=== PATIENT | female | born 1995 | race Caucasian/White ===

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

== ENCOUNTER 2022-05-08 08:33 | Emergency (ER) | payer BC, MEDICAID ==
[2022-05-08] MEDS ORDERED: TYLENOL EXTRA STRENGTH 500 MG PO ONE (08:45)
[2022-05-08 08:48] VITALS: BP 98/41; PULSE 68; O2SAT 100
--- NOTE | 2022-05-08 08:57 | ERPHSYRPT ---
- History of Present Illness Source: patient Exam Limitations: no limitations Patient Subjective Stated Complaint: PT HERE FOR RIGHT SHOULDER PAIN TODAY AFTER STRETCHING ARM BACK Triage Nursing Assessment: PT ALERT, RESP EASY, SKIN W/D/P, HAS DEFORMITY OF RIGHT SHOULDER Physician History: 26 yo WF who is 17 wks presents w probable R shoulder dislocations which occurred after reaching over her head this AM. Pt is L handed and states t hat she has a h/o "shoulder problems" but denies h/o dislocation. She denies other injuries at this time. Occurred: just prior to arrival Method of Injury: other (Lifting over her head) Quality: constant Severity of Pain-Max: moderate Severity of Pain-Current: mild Extremities Pain Location: shoulder: right Modifying Factors: Improves With: movement Associated Symptoms: none Allergies/Adverse Reactions: amoxicillin Allergy (Verified 05/08/22 08:42) Home Medications: No Reportable Medications [No Reported Medications] 05/14/16 [History] Hx Tetanus, Diphtheria Vaccination/Date Given: Yes Hx Influenza Vaccination/Date Given: No Hx Pneumococcal Vaccination/Date Given: No Immunizations Up to Date: Yes Travel Risk - International Travel Have you traveled outside of the country in past 3 weeks: No - Coronavirus Screening Are you exhibiting any of the following symptoms?: No - Vaccine Status Have you recieved a Covid-19 vaccination: No - Review of Systems Constitutional: No Symptoms Eyes: No Symptoms Ears, Nose, & Throat: No Symptoms Respiratory: No Symptoms Cardiac: No Symptoms Abdominal/Gastrointestinal: No Symptoms Genitourinary Symptoms: No Symptoms Skin: No Symptoms Neurological: No Symptoms Psychological: No Symptoms Endocrine: No Symptoms Hematologic/Lymphatic: No Symptoms Immunological/Allergic: No Symptoms - Past Medical History Pertinent Past Medical History: No - Past Surgical History Past Surgical History: Yes Gastrointestinal: Cholecystectomy - Social History Smoking Status: Former smoker Exposure to second hand smoke: Yes Drug Use: none Patient Lives Alone: No - Female History Hx Last Menstrual Period: NOV Hx Now: Yes Gestational Age: 18 - Nursing Vital Signs Nursing Vital Signs: Initial Vital Signs Temperature 98.7 F 05/08/22 08:47 Pulse Rate 68 05/08/22 08:47 Respiratory Rate 18 05/08/22 08:47 Blood Pressure 98/41 05/08/22 08:47 O2 Sat by Pulse Oximetry 100 05/08/22 08:47 Pain Scale Pain Intensity 4 WNL - Physical Exam General Appearance: no apparent distress Eyes, Ears, Nose, Throat Exam: normal ENT inspection, TMs normal, pharynx normal, moist mucous membranes Neck Exam: normal inspection, non-tender, supple, full range of motion, No Brudzinski, No Kernig's, No meningismus Cardiovascular/Respiratory Exam: normal breath sounds, regular rate/rhythm, heart sounds normal Abdominal Exam: non-tender, soft Back Exam: normal inspection, normal range of motion, No vertebral tenderness Shoulder Exam: deformity (Obvious dislocation of R shoulder/Good radial pulse, distal sensation, and capillary return) Elbow/Forearm Exam: normal inspection Wrist Exam: normal inspection Hand Exam: normal inspection Neuro/Tendon Exam: normal sensation, normal motor functions, normal tendon functions, responds to pain Mental Status Exam: alert, oriented x 3, cooperative Skin Exam: normal color, warm, dry SpO2 Interpretation: normal SpO2: 100 O2 Delivery: Room Air - Course Nursing assessment & vital signs reviewed: Yes Ordered Tests: Active Orders 24 hr Category Date Time Status Sling Application STAT Care 05/08/22 09:02 Completed Medication Summary Discontinued Medications Generic Name Dose Route Start Last Admin Trade Name Ebonie PRN Reason Stop Dose Admin Acetaminophen 1,000 mg 05/08/22 08:45 05/08/22 09:04 Acetaminophen 500 Mg Tablet PO 05/08/22 08:46 1,000 mg STAT ONE Administration Acetaminophen Confirm 05/08/22 09:03 Acetaminophen 500 Mg Tablet Administered 05/08/22 09:04 Dose 1,000 mg .ROUTE .STK-MED ONE - Progress Progress: improved Progress Note: 05/08/22 08:57 No food or housing insecurities noted Pt is a full code R shoulder dislocation reduced easily wo sedation by abducting the RUE w humoral head pressure per nursing Obvious reduction/No comps Pt refused post reduction XR's due to Good distal capillary return and sensation post reduction Sling applied/NVI 1gm po Tylenol 05/08/22 09:01 05/08/22 11:56 Counseled pt/family regarding: diagnosis, need for follow-up - Departure Departure Disposition: Home Clinical Impression: Dislocation of right shoulder joint Condition: Stable Critical Care Time: No Referrals: [facility] [NON-STAFF PHY W/O PRIVILEGES] - Follow up/PCP as directed Instructions: Shoulder Dislocation (DC) Additional Instructions: Tylenol for pain Follow up in ortho-clinic
[2022-05-08] MEDS ORDERED: TYLENOL EXTRA STRENGTH 500 MG ONE (09:03)
== END 2022-05-08 09:19 | disposition home or self-care (01) ==
LOC: ED 08:33
DX: S43.004A Unspecified dislocation of right shoulder joint, initial encounter (principal); X50.0XXA Overexertion from strenuous movement or load, initial encounter; Z33.1 Pregnant state, incidental; Z28.310 Unvaccinated for COVID-19
CPT/HCPCS: 23650; 99282; L3650; A9270-GY

== ENCOUNTER 2022-08-17 17:50 | Observation (INO) | payer BC, OTHER ==
[2022-08-17 19:14] VITALS: BP 106/50; PULSE 86; O2SAT 96
== END 2022-08-17 18:58 | disposition home or self-care (01) ==
LOC: OB 17:50
PROVIDERS: ADMIT Obstetrics & Gynecology; ATTEND Obstetrics & Gynecology
DX: Z34.83 Encounter for supervision of other normal pregnancy, third trimester (principal); Z3A.31 31 weeks gestation of pregnancy
CPT/HCPCS: G0378; G0379

== ENCOUNTER 2022-08-31 15:13 | Emergency (ER) | payer BC, OTHER ==
--- NOTE | 2022-08-31 15:26 | ERPHSYRPT ---
- History of Present Illness Time Seen by Provider: 08/31/22 15:26 Source: patient Exam Limitations: no limitations Physician History: This is a 26-year-old white female patient of Dr. Calderon and [facility] Dr. Tabor who presents approximately 33 weeks gestation with a single intrauterine that was documented most recently on 08/04/2022 on an obstetric ultraso und. Patient is here today because she was sensing palpitations intermittently since Wednesday prior to this evaluation. She had never had this before during thi or any other . She is not having chest pain. She is not significantly short of breath. She has not had a cough. She has not had fevers. There is been no dysuria or hematuria. There is been no abnormal vaginal bleeding. Timing/Duration: yesterday Severity of Dyspnea-Max: none Severity of Dyspnea-Current: none Possible Cause: no prior episodes Modifying Factors: Improves With: nothing Associated Symptoms: denies symptoms Allergies/Adverse Reactions: amoxicillin Allergy (Unknown, Verified 08/31/22 15:20) Home Medications: Vit 93/Iron Fum/Folic [ Formula Tablet] 1 each PO DAILY 08/17/22 [History] Hx Tetanus, Diphtheria Vaccination/Date Given: Yes Hx Influenza Vaccination/Date Given: No Hx Pneumococcal Vaccination/Date Given: No Travel Risk - International Travel Have you traveled outside of the country in past 3 weeks: No - Coronavirus Screening Are you exhibiting any of the following symptoms?: No Close contact with a COVID-19 positive Pt in past 14-21 Days: No - Vaccine Status Have you recieved a Covid-19 vaccination: No - Review of Systems Constitutional: No Symptoms Eyes: No Symptoms Ears, Nose, & Throat: No Symptoms Respiratory: No Symptoms Cardiac: Palpitations, No Chest Pain Abdominal/Gastrointestinal: No Symptoms Genitourinary Symptoms: No Symptoms Musculoskeletal: No Symptoms Skin: No Symptoms Neurological: No Symptoms Psychological: No Symptoms Endocrine: No Symptoms Hematologic/Lymphatic: No Symptoms Immunological/Allergic: No Symptoms All Other Systems: Reviewed and Negative - Past Medical History Pertinent Past Medical History: No - Past Surgical History Past Surgical History: Yes Gastrointestinal: Cholecystectomy - Social History Smoking Status: Current every day smoker Exposure to second hand smoke: Yes Drug Use: none Patient Lives Alone: No - Nursing Vital Signs Nursing Vital Signs: Initial Vital Signs Respiratory Rate 18 08/31/22 15:30 O2 Sat by Pulse Oximetry 98 08/31/22 15:30 Pain Scale Pain Intensity 0 - Physical Exam General Appearance: no apparent distress, alert, anxiety Eye Exam: PERRL/EOMI, eyes nml inspection Ears, Nose, Throat Exam: hearing grossly normal, normal ENT inspection Neck Exam: normal inspection, non-tender, supple, full range of motion Respiratory Exam: normal breath sounds, lungs clear, airway intact, No chest tenderness, No respiratory distress Cardiovascular/Chest Exam: tachycardia Abdominal/Gastrointestinal Exam: soft (Mild), normal bowel sounds, No tenderness Rectal Exam: No not done Extremity Exam: non-tender, normal range of motion, normal inspection, normal capillary refill, no calf tenderness, no pedal edema, pelvis stable Neurologic Exam: alert, oriented x 3, cooperative, 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, normal mood/affect, nml cerebellar function, nml station & gait, sensation nml Skin Exam: normal color, warm, dry Lymphatic Exam: No adenopathy SpO2 Interpretation: normal O2 Delivery: Room Air - Course Nursing assessment & vital signs reviewed: Yes EKG Interpreted by Me: RATE (104), Sinus Tach, NORMAL AXIS, NORMAL INTERVALS, NORMAL QRS, NORMAL ST-T, Other (No acute ischemic changes on today's twelve-lead EKG.) Ordered Tests: Active Orders 24 hr Category Date Time Status Passenger Rate Clerk STAT Care 08/31/22 15:42 Active EKG-ER Only STAT Care 08/31/22 15:42 Active IV Insertion STAT Care 08/31/22 15:42 Active Pulse Oximetry (ED) STAT Care 08/31/22 15:42 Active CBC W DIFF Stat Lab 08/31/22 15:42 Completed CMP Stat Lab 08/31/22 15:25 Completed CULTURE,URINE Stat Lab 08/31/22 15:43 Received MAGNESIUM Stat Lab 08/31/22 15:25 Completed TROPONIN Q4H Lab 08/31/22 15:25 Completed TROPONIN Q4H Lab 08/31/22 19:45 Ordered TROPONIN Q4H Lab 08/31/22 23:45 Ordered UA W/RFX UR CULTURE Stat Lab 08/31/22 15:43 Completed Medication Summary Generic Name Dose Route Start Last Admin Trade Name Freq PRN Reason Stop Dose Admin Sodium Chloride 1,000 mls @ 999 mls/hr 08/31/22 15:42 08/31/22 15:48 Sodium Chloride 0.9% 1000 Ml IV 08/31/22 16:42 999 mls/hr .Q1H1M STA Administration Ceftriaxone Sodium/Dextrose 1 g in 50 mls @ 100 mls/hr 08/31/22 16:10 08/31/22 16:20 Rocephin 1 Gm-D5w 50 Ml Bag IV 08/31/22 16:39 100 ml/hr STAT STA 100 mls/hr Administration Discontinued Medications Generic Name Dose Route Start Last Admin Trade Name Ebonie PRN Reason Stop Dose Admin Sodium Chloride Confirm 08/31/22 15:46 Sodium Chloride 0.9% 1000 Ml Administered 08/31/22 15:47 Dose 1,000 mls @ ud .ROUTE .STK-MED ONE Ceftriaxone Sodium/Dextrose Confirm 08/31/22 16:18 Rocephin 1 Gm-D5w 50 Ml Bag Administered 08/31/22 16:19 Dose 1 g in 50 mls @ ud IV .STK-MED ONE Lab/Rad Data: Laboratory Result Diagrams 08/31/22 15:42 08/31/22 15:25 Laboratory Results 08/31/22 08/31/22 08/31/22 Range/Units 15:43 15:42 15:25 WBC 10.4 (4.0-10.5) x10^3/uL RBC 3.96 L (4.1-5.4) x10^6/uL Hgb 11.6 L (12.0-16.0) g/dL Hct 35.6 (35-47) % MCV 89.9 (78-100) fL MCH 29.3 (26-32) pg MCHC 32.6 (32-36) g/dL RDW 12.9 (11.5-14.0) % Plt Count 250 (150-450) x10^3/uL MPV 10.2 (7.5-11.0) fL Gran % 73.7 H (36.0-66.0) % Immature Gran % (Auto) 0.9 H (0.00-0.4) % Nucleat RBC Rel Count 0.0 (0.00-0.1) % Eos # (Auto) 0.08 (0-0.5) x10^3/uL Immature Gran # (Auto) 0.09 H (0.00-0.03) x10^3u/L Absolute Lymphs (auto) 2.03 (1.0-4.6) x10^3/uL Absolute Monos (auto) 0.50 (0.0-1.3) x10^3/uL Absolute Nucleated RBC 0.00 (0.00-0.01) x10^3u/L Lymphocytes % 19.5 L (24.0-44.0) % Monocytes % 4.8 (0.0-12.0) % Eosinophils % 0.8 (0.00-5.0) % Basophils % 0.3 (0.0-0.4) % Absolute Granulocytes 7.69 H (1.4-6.9) x10^3/uL Basophils # 0.03 (0-0.4) x10^3/uL Sodium (137-145) mmol/L Potassium (3.5-5.1) mmol/L Chloride (98-107) mmol/L Carbon Dioxide (22-30) mmol/L Anion Gap (5-15) MEQ/L BUN (7-17) mg/dL Creatinine (0.52-1.04) mg/dL Estimated GFR ML/MIN Glucose (74-106) mg/dL Calcium (8.4-10.2) mg/dL Magnesium (1.6-2.3) mg/dL Total Bilirubin (0.2-1.3) mg/dL AST (14-36) U/L ALT (0-35) U/L Alkaline Phosphatase (38-126) U/L Troponin I < 0.012 (0.000-0.034) ng/mL Serum Total Protein (6.3-8.2) g/dL Albumin (3.5-5.0) g/dL Urine Color Yellow (Yellow) Urine Appearance Cloudy A (Clear) Urine pH 6.5 (4.6-8.0) Ur Specific [place] 1.020 (1.005-1.030) Urine Protein Trace A (Negative) Urine Glucose (UA) 250 A (Negative) mg/dL Urine Ketones 15 A (Negative) Urine Blood Negative (Negative) Urine Nitrite Negative (Negative) Urine Bilirubin Negative (Negative) Urine Urobilinogen 2.0 A (0.2) mg/dL Ur Leukocyte Esterase Moderate A (Negative) U Hyaline Cast (Auto) NONE SEEN (0-2) /LPF Urine Microscopic RBC 0-2 (0-5) /HPF Urine Microscopic WBC 21-50 A (0-5) /HPF Ur Epithelial Cells Many A (None Seen) /HPF Urine Bacteria Moderate A (None Seen) /HPF Urine Culture Reflexed YES (NO) 08/31/22 Range/Units 15:25 WBC (4.0-10.5) x10^3/uL RBC (4.1-5.4) x10^6/uL Hgb (12.0-16.0) g/dL Hct (35-47) % MCV (78-100) fL MCH (26-32) pg MCHC (32-36) g/dL RDW (11.5-14.0) % Plt Count (150-450) x10^3/uL MPV (7.5-11.0) fL Gran % (36.0-66.0) % Immature Gran % (Auto) (0.00-0.4) % Nucleat RBC Rel Count (0.00-0.1) % Eos # (Auto) (0-0.5) x10^3/uL Immature Gran # (Auto) (0.00-0.03) x10^3u/L Absolute Lymphs (auto) (1.0-4.6) x10^3/uL Absolute Monos (auto) (0.0-1.3) x10^3/uL Absolute Nucleated RBC (0.00-0.01) x10^3u/L Lymphocytes % (24.0-44.0) % Monocytes % (0.0-12.0) % Eosinophils % (0.00-5.0) % Basophils % (0.0-0.4) % Absolute Granulocytes (1.4-6.9) x10^3/uL Basophils # (0-0.4) x10^3/uL Sodium 136 L (137-145) mmol/L Potassium 3.6 (3.5-5.1) mmol/L Chloride 106 (98-107) mmol/L Carbon Dioxide 20 L (22-30) mmol/L Anion Gap 13.7 (5-15) MEQ/L BUN 4 L (7-17) mg/dL Creatinine 0.40 L (0.52-1.04) mg/dL Estimated GFR > 60.0 ML/MIN Glucose 113 H (74-106) mg/dL Calcium 9.2 (8.4-10.2) mg/dL Magnesium 1.7 (1.6-2.3) mg/dL Total Bilirubin 0.90 (0.2-1.3) mg/dL AST 18 (14-36) U/L ALT 12 (0-35) U/L Alkaline Phosphatase 100 (38-126) U/L Troponin I (0.000-0.034) ng/mL Serum Total Protein 6.7 (6.3-8.2) g/dL Albumin 3.6 (3.5-5.0) g/dL Urine Color (Yellow) Urine Appearance (Clear) Urine pH (4.6-8.0) Ur Specific [place] (1.005-1.030) Urine Protein (Negative) Urine Glucose (UA) (Negative) mg/dL Urine Ketones (Negative) Urine Blood (Negative) Urine Nitrite (Negative) Urine Bilirubin (Negative) Urine Urobilinogen (0.2) mg/dL Ur Leukocyte Esterase (Negative) U Hyaline Cast (Auto) (0-2) /LPF Urine Microscopic RBC (0-5) /HPF Urine Microscopic WBC (0-5) /HPF Ur Epithelial Cells (None Seen) /HPF Urine Bacteria (None Seen) /HPF Urine Culture Reflexed (NO) - Progress Progress: improved, re-examined Air Movement: good Progress Note: 08/31/22 16:28 This patient's medical issue is 1 of moderate complexity. Level of complexity in the work-up performed is based on review of the patient's past medical history, review the patient's medication list, review the patient's medical drug allergies, history present illness and physical findings on examination. The work-up includes placement of intravenous line, infusion of 1 L normal saline solution, CBC, CMP, twelve-lead EKG and troponin level. I reviewed the patient work-up results. The patient has a urinary tract infection and is mildly dehydrated. The patient has had Keflex in the past and has had no problems with Keflex. I did attempt to call the patient's OB physician. I left a message. He has not yet called me back. I am confident that the patient's palpitation is likely secondary to mild dehydration and a urinary tract infection during . Obstetrical nurses came down and monitored the intrauterine child and they stated that the child "looks good". I am discharging the patient to home with a prescription for Keflex antibiotics. Blood Culture(s) Obtained: No Antibiotics given: Yes Counseled pt/family regarding: lab results, diagnosis, need for follow-up Medical Desision Making - Independent Historian Additional History obtained from: Spouse - Diagnostic Testing Diagnostic test were ordered, analyzed, and reviewed by me: Yes - Risk of complications The pt has a mod risk of morbidity or mortality based on: Need for prescription drug management - Departure Departure Disposition: Home Clinical Impression: Dehydration, mild, Urinary tract infection during Condition: Stable Critical Care Time: No Referrals: SORAYA FALL MD [Primary Care Provider] - Follow up/PCP as directed Additional Instructions: Drink plenty of fluids. Take your medication as prescribed. Follow-up with your primary care provider and [facility] for further evaluation and management. Prescriptions: Cephalexin Mh 500 mg [Keflex 500 mg] 500 mg PO TID #21 cap
[2022-08-31] MEDS ORDERED: Sodium Chloride 0.9% 1000 ML 1,000 ML IV STA (15:42)
[2022-08-31] MEDS ORDERED: Sodium Chloride 0.9% 1000 ML 1,000 ML ONE (15:46)
[2022-08-31 15:54] LABS: Absolute Neutrophil Ct (ANC) 7.69 x10^3/uL (1.4-6.9); BASOPHIL % 0.3 % (0.0-0.4); Basophil (Absolute #) 0.03 x10^3/uL (0-0.4); Eosinophil % 0.8 % (0.00-5.0); Eosinophil (Absolute #) 0.08 x10^3/uL (0-0.5); Hematocrit 35.6 % (35-47); Hemoglobin 11.6 g/dL (12.0-16.0); IMMATURE GRAN # 0.09 x10^3u/L (0.00-0.03); IMMATURE GRAN % 0.9 % (0.00-0.4); Lymphocyte (Absolute #) 2.03 x10^3/uL (1.0-4.6); Lymphocytes % 19.5 % (24.0-44.0); Mean Cell Volume 89.9 fL (78-100); Mean Corpuscular Hemoglobin 29.3 pg (26-32); Mean Corpuscular Hgb Concent. 32.6 g/dL (32-36); Mean Platelet Volume 10.2 fL (7.5-11.0); Monocytes % 4.8 % (0.0-12.0); Neutrophil % 73.7 % (36.0-66.0); Platelet Count 250 x10^3/uL (150-450); Red Blood Count 3.96 x10^6/uL (4.1-5.4); Red Cell Distribution Width 12.9 % (11.5-14.0); White Blood Count 10.4 x10^3/uL (4.0-10.5)
[2022-08-31 16:03] LABS: Appearance Cloudy (Clear); Bacteria Moderate /HPF (None Seen); Bilirubin Negative (Negative); Blood Negative (Negative); Epithelial Cells Many /HPF (None Seen); Glucose, Urine 250 mg/dL (Negative); Hyaline Casts NONE SEEN /LPF (0-2); Ketones 15 (Negative); Leukocyte Esterase Moderate (Negative); Nitrite Negative (Negative); Ph 6.5 (4.6-8.0); Protein,Urine Dip Trace (Negative); RBC 0-2 /HPF (0-5); WBC 21-50 /HPF (0-5)
[2022-08-31 16:04] LABS: ADD URINE CULTURE? YES (NO)
[2022-08-31 16:06] LABS: ALBUMIN 3.6 g/dL (3.5-5.0); ALKALINE PHOSPHATASE 100 U/L (38-126); ANION GAP 13.7 MEQ/L (5-15); BLOOD UREA NITROGEN 4 mg/dL (7-17); CHLORIDE 106 mmol/L (98-107); Calcium 9.2 mg/dL (8.4-10.2); Carbon Dioxide 20 mmol/L (22-30); EST GLOMERULAR FILTRATION RATE > 60.0 ML/MIN; Glucose 113 mg/dL (74-106); MAGNESIUM 1.7 mg/dL (1.6-2.3); Potassium 3.6 mmol/L (3.5-5.1); SGOT/AST 18 U/L (14-36); SGPT/ALT 12 U/L (0-35); SODIUM 136 mmol/L (137-145); Total Protein 6.7 g/dL (6.3-8.2)
[2022-08-31] MEDS ORDERED: ROCEPHIN 1 Gm-D5w 50 ml Bag** 1 G/50 ML IVPB IV STA (16:10)
[2022-08-31] MEDS ORDERED: ROCEPHIN 1 Gm-D5w 50 ml Bag** 1 G/50 ML IVPB IV ONE (16:18)
[2022-08-31 16:51] VITALS: BP 107/64; PULSE 84; O2SAT 98
== END 2022-08-31 16:55 | disposition home or self-care (01) ==
LOC: ED 15:13
DX: O23.43 Unspecified infection of urinary tract in pregnancy, third trimester (principal); N39.0 Urinary tract infection, site not specified; Z3A.33 33 weeks gestation of pregnancy; E86.0 Dehydration; R00.2 Palpitations; Z28.310 Unvaccinated for COVID-19; Z72.0 Tobacco use
CPT/HCPCS: 36000; 36415; 80053; 81001; 83735; 84484; 85025; 87086; 93005; 93041; 94760; 96365; 99284; J0696

== ENCOUNTER 2022-10-11 08:05 | Inpatient (IN) | payer BC, OTHER ==
[2022-10-11] MEDS ORDERED: TYLENOL EXTRA STRENGTH 500 MG PO PRN (20:00)
[2022-10-11] MEDS ORDERED: Nubain 10 MG/ML IV PRN (20:00)
[2022-10-11] MEDS ORDERED: Zofran 4 MG/2 ML VIAL IV PRN (20:00)
[2022-10-11] MEDS ORDERED: STADOL 2 MG IV PRN (20:00)
[2022-10-11 20:53] LABS: Hematocrit 33.5 % (35-47); Hemoglobin 11.2 g/dL (12.0-16.0); Mean Cell Volume 87.7 fL (78-100); Mean Corpuscular Hemoglobin 29.3 pg (26-32); Mean Corpuscular Hgb Concent. 33.4 g/dL (32-36); Mean Platelet Volume 10.2 fL (7.5-11.0); Platelet Count 251 x10^3/uL (150-450); Red Blood Count 3.82 x10^6/uL (4.1-5.4); Red Cell Distribution Width 13.2 % (11.5-14.0)
[2022-10-11 21:43] LABS: ABO TYPING O; Antibody Screen NEGATIVE (NEGATIVE); RH TYPING POSITIVE
[2022-10-11] MEDS ORDERED: CYTOTEC PO SCH (22:45)
[2022-10-12] MEDS ORDERED: Lactated Ringers 1,000 ML IV ONE
[2022-10-12] MEDS ORDERED: FENTANYL 2 MCG-BUPIV 0.125%-NS 250 ML Epidur 250 ML EPIDURAL SCH
[2022-10-12] MEDS ORDERED: Ephedrine Sulfate 50 MG/ML IV PRN
[2022-10-12] MEDS ORDERED: PITOCIN 30 UNITS/ LR 500 ML 500 ML IV SCH (05:00)
[2022-10-12] MEDS ORDERED: Lactated Ringers 1,000 ML IV SCH (05:00)
[2022-10-12] MEDS ORDERED: XYLOCAINE 1% HCL 20 ML MDV IJ PRN (05:00)
[2022-10-12] MEDS: Lactated Ringers 1,000 ML IV SCH ×2 (08:21→11:52)
[2022-10-12] MEDS ORDERED: PITOCIN 30 UNITS/ LR 500 ML 30 UNITS/500 ML PLAST..BAG IV SCH (10:00)
[2022-10-12] MEDS ORDERED: LANSINOH 40 GM TOP PRN (12:00)
[2022-10-12] MEDS ORDERED: Dermoplast Spray TP PRN (12:00)
[2022-10-12] MEDS ORDERED: TUCKS TP PRN (12:00)
[2022-10-12] MEDS: MOTRIN 400 MG PO PRN (19:23)
[2022-10-13] MEDS: MOTRIN 400 MG PO PRN ×3 (01:16→15:40)
[2022-10-13 04:35] LABS: Absolute Neutrophil Ct (ANC) 7.92 x10^3/uL (1.4-6.9); BASOPHIL % 0.3 % (0.0-0.4); Basophil (Absolute #) 0.04 x10^3/uL (0-0.4); Eosinophil % 1.2 % (0.00-5.0); Eosinophil (Absolute #) 0.14 x10^3/uL (0-0.5); Hemoglobin 10.5 g/dL (12.0-16.0); IMMATURE GRAN # 0.07 x10^3u/L (0.00-0.03); IMMATURE GRAN % 0.6 % (0.00-0.4); Lymphocyte (Absolute #) 2.53 x10^3/uL (1.0-4.6); Lymphocytes % 21.5 % (24.0-44.0); Mean Cell Volume 88.4 fL (78-100); Mean Corpuscular Hgb Concent. 32.8 g/dL (32-36); Mean Platelet Volume 10.3 fL (7.5-11.0); Monocyte (Absolute #) 1.05 x10^3/uL (0.0-1.3); Monocytes % 8.9 % (0.0-12.0); Neutrophil % 67.5 % (36.0-66.0); Platelet Count 210 x10^3/uL (150-450); Red Blood Count 3.62 x10^6/uL (4.1-5.4); Red Cell Distribution Width 13.2 % (11.5-14.0); White Blood Count 11.8 x10^3/uL (4.0-10.5)
--- NOTE | 2022-10-13 07:42 | PCM.NOTE ---
Date and Time: 10/13/22740 Subjective Assessment: ppd 1 sp pt resting in bed and doing well able to ambulate and tolerate diet. vss afebrile abd; soft uterus; firm lochia; mild hgb; 10 a/p sp ppd 1 anticipate discharge tomorrow should fu office in 3 wks OBJECTIVE DATA Vital Signs: Vital Signs - 24 hr Temp Pulse Resp BP BP Pulse Ox 10/13/22 02:15 98.6 F 55 L 18 109/53 10/12/22 20:10 97.9 F 72 18 107/60 10/12/22 16:00 98 F 74 18 105/62 10/12/22 15:20 98 F 69 20 100/56 100 10/12/22 15:05 98 F 69 20 100/58 100 10/12/22 14:44 98 F 66 20 93/51 100 10/12/22 14:30 97.9 F 75 20 107/52 94 L 10/12/22 14:00 98 F 69 20 10/12/22 13:45 69 20 103/59 100 10/12/22 13:30 98 F 71 20 113/64 10/12/22 13:15 72 20 107/76 10/12/22 13:00 72 20 100 10/12/22 12:45 98 F 69 20 100 10/12/22 12:30 65 20 10/12/22 12:15 65 16 111/63 10/12/22 12:00 66 16 113/59 10/12/22 11:45 75 16 112/63 10/12/22 11:30 70 16 109/64 10/12/22 11:15 70 16 94/54 10/12/22 11:00 70 16 94/56 10/12/22 10:45 61 18 89/51 10/12/22 10:30 64 16 101/55 95 10/12/22 10:15 68 18 104/58 95 10/12/22 10:00 71 18 104/56 96 10/12/22 09:45 71 18 98/54 96 10/12/22 09:30 79 18 104/61 10/12/22 09:00 76 22 101/59 10/12/22 08:30 68 20 103/55 10/12/22 08:15 76 22 Pain Assessment - Last Documented Pain Intensity 0 Pain Scale Used 0-10 Pain Scale Intake and Output: Intake & Output 10/10/22 10/11/22 10/12/22 10/13/22 11:59 11:59 11:59 11:59 Intake Total 3450 2600 Output Total 2300 1200 Balance 1150 1400 Weight 63.049 kg Lab Results: Lab Results-Last 24 Hours 10/13/22 Range/Units 04:32 WBC 11.8 H (4.0-10.5) x10^3/uL RBC 3.62 L (4.1-5.4) x10^6/uL Hgb 10.5 L (12.0-16.0) g/dL Hct 32.0 L (35-47) % MCV 88.4 (78-100) fL MCH 29.0 (26-32) pg MCHC 32.8 (32-36) g/dL RDW 13.2 (11.5-14.0) % Plt Count 210 (150-450) x10^3/uL MPV 10.3 (7.5-11.0) fL Gran % 67.5 H (36.0-66.0) % Immature Gran % (Auto) 0.6 H (0.00-0.4) % Nucleat RBC Rel Count 0.0 (0.00-0.1) % Eos # (Auto) 0.14 (0-0.5) x10^3/uL Immature Gran # (Auto) 0.07 H (0.00-0.03) x10^3u/L Absolute Lymphs (auto) 2.53 (1.0-4.6) x10^3/uL Absolute Monos (auto) 1.05 (0.0-1.3) x10^3/uL Absolute Nucleated RBC 0.00 (0.00-0.01) x10^3u/L Lymphocytes % 21.5 L (24.0-44.0) % Monocytes % 8.9 (0.0-12.0) % Eosinophils % 1.2 (0.00-5.0) % Basophils % 0.3 (0.0-0.4) % Absolute Granulocytes 7.92 H (1.4-6.9) x10^3/uL Basophils # 0.04 (0-0.4) x10^3/uL Assessment/Plan (1) Vaginal delivery Current Visit: Yes Status: Acute Code(s): O80 - ENCOUNTER FOR FULL-TERM UNCOMPLICATED DELIVERY
--- NOTE | 2022-10-13 07:46 | PCM.DS ---
Discharge Summary Date of Admission: 10/12/22 08:05 Admitting Physician: SCOTT GARCIA DO Consults: Consults on Case 10/12/22 17:09 Navigation ONCE Primary Care Provider: SORAYA FALL MD Allergies Allergies amoxicillin Allergy (Mild, Verified 09/29/22 16:01) Rash Hospital Summary - Hospital Course Hospital Course: pt admitted on october 11 for oral cytotec induction at 39 wks gestation and subsequently delivered live baby girl via withoutcomplication on october 12. during period did well able to ambulate and tolerate diet with stable hgb level at 10. pt at at this time stable for discharge on october 14 and was advised to fu in office in 3 wks. all questions answered to her satisfaction. - Vitals & Intake/Output Vital Signs: Vital Signs Temperature 98.6 F 10/13/22 02:15 Pulse Rate 55 L 10/13/22 02:15 Respiratory Rate 18 10/13/22 02:15 Blood Pressure 109/53 10/13/22 02:15 O2 Sat by Pulse Oximetry 100 10/12/22 15:20 Intake & Output: Intake & Output 10/10/22 10/11/22 10/12/22 10/13/22 11:59 11:59 11:59 11:59 Intake Total 3450 2600 Output Total 2300 1200 Balance 1150 1400 Weight 63.049 kg - Lab Result Diagrams: 10/13/22 04:32 Lab Results-Last 24 Hrs: Lab Results-Last 24 Hours 10/13/22 Range/Units 04:32 WBC 11.8 H (4.0-10.5) x10^3/uL RBC 3.62 L (4.1-5.4) x10^6/uL Hgb 10.5 L (12.0-16.0) g/dL Hct 32.0 L (35-47) % MCV 88.4 (78-100) fL MCH 29.0 (26-32) pg MCHC 32.8 (32-36) g/dL RDW 13.2 (11.5-14.0) % Plt Count 210 (150-450) x10^3/uL MPV 10.3 (7.5-11.0) fL Gran % 67.5 H (36.0-66.0) % Immature Gran % (Auto) 0.6 H (0.00-0.4) % Nucleat RBC Rel Count 0.0 (0.00-0.1) % Eos # (Auto) 0.14 (0-0.5) x10^3/uL Immature Gran # (Auto) 0.07 H (0.00-0.03) x10^3u/L Absolute Lymphs (auto) 2.53 (1.0-4.6) x10^3/uL Absolute Monos (auto) 1.05 (0.0-1.3) x10^3/uL Absolute Nucleated RBC 0.00 (0.00-0.01) x10^3u/L Lymphocytes % 21.5 L (24.0-44.0) % Monocytes % 8.9 (0.0-12.0) % Eosinophils % 1.2 (0.00-5.0) % Basophils % 0.3 (0.0-0.4) % Absolute Granulocytes 7.92 H (1.4-6.9) x10^3/uL Basophils # 0.04 (0-0.4) x10^3/uL - Procedures and Test Procedures and Tests throughout Hospitalization: Therapy Orders & Screens 10/12/22 03:03 Smoking Cessation Education ONCE Comment: Smoking Status: Current every day smoker How long have you smoked: 6 yrs Have you smoked in the past 12 months: Yes Approximately how many cigarettes per day: Vapes Do you dip or chew tobacco: No If,Former Smoker,when did you quit: cigarettes two years Final Diagnosis/Problem List - Final Discharge Diagnosis/Problem (1) Vaginal delivery Current Visit: Yes Status: Acute Code(s): O80 - ENCOUNTER FOR FULL-TERM [facility] MPLICATED DELIVERY - Discharge Disposition: Home, Self-Care Condition: Stable Prescriptions: No Action Vit 93/Iron Fum/Folic [ Formula Tablet] 1 each PO DAILY Acetaminophen 500 mg [Tylenol Extra Strength 500 mg] 500 mg PO Q6H PRN PRN Reason: Pain Follow up with: SCOTT GARCIA DO [ACTIVE STAFF] - 3 weeks SORAYA FALL MD [Primary Care Provider] - Call for Appointment
[2022-10-13] MEDS: Docusate Sodium 100 MG PO SCH ×2 (08:12→21:07)
[2022-10-13] MEDS ORDERED: FERREX 150 PO SCH (10:00)
[2022-10-13] MEDS ORDERED: Adacel Vial IM ONE (12:00)
[2022-10-14] MEDS: MOTRIN 400 MG PO PRN (00:35)
[2022-10-14 03:14] VITALS: RESP 16
[2022-10-14 12:02] VITALS: TEMP 98.2
[2022-10-14 18:41] VITALS: BP 116/72; PULSE 88; O2SAT 100
== END 2022-10-14 16:24 | disposition home or self-care (01) | DRG 807 ==
LOC: OB 08:05 → OBSVTOIN 10-12 08:05
PROVIDERS: ADMIT Obstetrics & Gynecology; ATTEND Obstetrics & Gynecology
PROC: 10E0XZZ Delivery of Products of Conception, External Approach (ICD-10-PCS; principal; 2022-10-12)
PROC: 0KQM0ZZ Repair Perineum Muscle, Open Approach (ICD-10-PCS; 2022-10-12)
DX: O70.1 Second degree perineal laceration during delivery (principal); Z37.0 Single live birth; Z3A.39 39 weeks gestation of pregnancy; Z20.828 Contact with and (suspected) exposure to other viral communicable diseases
CPT/HCPCS: 36415; 59400; 85025; 85027; 86850; 86900; 86901; 87086; 90471; 90715; G0378; J2590; A9270-GY

== ENCOUNTER 2023-01-23 16:27 | Emergency (ER) | payer SELFPAY ==
[2023-01-23] MEDS ORDERED: Sodium Chloride 0.9% 1000 ML 1,000 ML IV ONE (16:28)
[2023-01-23] MEDS ORDERED: Zofran 4 MG/2 ML VIAL IV ONE (16:28)
[2023-01-23] MEDS ORDERED: Amidate 20 MG/10 ML IV STA (16:40)
[2023-01-23] MEDS ORDERED: Hydromorphone 1 mg/ml Injection IV ONE (16:40)
[2023-01-23] MEDS ORDERED: Hydromorphone 1 mg/ml Injection ONE (16:50)
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
[2023-01-23 17:21] VITALS: TEMP 98
[2023-01-23 18:14] VITALS: BP 108/64; PULSE 60; RESP 20; O2SAT 100
--- NOTE | 2023-01-23 19:56 | XRAY ---
Indication: Pain. Comparison: None Portable AP and scapular Y view right shoulder demonstrates anterior inferior dislocation humeral head. No other bony, articular, or soft tissue abnormalities.
--- NOTE | 2023-01-23 19:57 | XRAY ---
Indication: Postreduction. Comparison: Taken earlier in the day. Single AP right shoulder demonstrates successful reduction previous humeral head dislocation. No other bony, articular, or soft tissue abnormalities.
== END 2023-01-23 18:15 | disposition home or self-care (01) ==
LOC: ED 16:27
DX: M24.411 Recurrent dislocation, right shoulder (principal); Z79.891 Long term (current) use of opiate analgesic; Z28.310 Unvaccinated for COVID-19; Z72.0 Tobacco use
CPT/HCPCS: 23650; 73030; 94799; 96374; 96375; 99283; J1170; J2405

== ENCOUNTER 2023-03-05 10:56 | Emergency (ER) | payer SELFPAY ==
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
[2023-03-05] MEDS ORDERED: Hydromorphone 1 mg/ml Injection IV ONE (11:07)
[2023-03-05] MEDS ORDERED: Zofran 4 MG/2 ML VIAL IV ONE (11:07)
[2023-03-05] MEDS ORDERED: Amidate 20 MG/10 ML IV ONE (11:08)
[2023-03-05 11:11] VITALS: TEMP 97.7
[2023-03-05] MEDS ORDERED: Hydromorphone 1 mg/ml Injection ONE (11:24)
[2023-03-05] MEDS ORDERED: Zofran 4 MG/2 ML VIAL ONE (11:24)
--- NOTE | 2023-03-05 11:30 | XRAY ---
Indication: Dislocation. Comparison: January 23, 2023 2 view right shoulder demonstrates reoccurring anterior inferior dislocation humeral head. No other bony, articular, or soft tissue abnormalities.
--- NOTE | 2023-03-05 12:00 | XRAY ---
Indication: Post reduction. Comparison: Taken earlier today. 2 view right shoulder demonstrates successful reduction of previous humeral head dislocation. No other bony, articular, or soft tissue abnormalities.
[2023-03-05 12:13] VITALS: BP 117/68; PULSE 65; O2SAT 98
== END 2023-03-05 12:53 | disposition home or self-care (01) ==
LOC: ED 10:56
DX: M24.411 Recurrent dislocation, right shoulder (principal); Z79.891 Long term (current) use of opiate analgesic; Z28.310 Unvaccinated for COVID-19; Z72.0 Tobacco use
CPT/HCPCS: 36000; 73030; 94799; 96374; 96375; 99284; J1170; J2405

== ENCOUNTER 2024-12-13 11:14 | Day surgery (SDC) | payer BC ==
[2024-12-13] MEDS ORDERED: LIDOCAINE HCL 1% 50 MG/5 ML VL IJ ONE (11:15)
[2024-12-13 11:31] LABS: HCG URINE TEST NEGATIVE (NEGATIVE)
[2024-12-13] MEDS ORDERED: propofoL IV ONE (12:40)
[2024-12-13] MEDS ORDERED: Lactated Ringers 1,000 ML IV ONE (13:32)
--- NOTE | 2024-12-13 13:32 | XRAY ---
Indication: Right piriformis injection. Intraoperative fluoroscopy provided for 7 seconds. Single digital spot image submitted for interpretation demonstrates posterior needle tip projecting over right piriformis. Small amount of contrast injected for needle tip placement. Correlate with intraoperative findings/report.
--- NOTE | 2024-12-13 13:34 | XRAY ---
7 seconds of fluoroscopy was used in surgery for a right piriformis injection.
== END 2024-12-13 13:14 | disposition home or self-care (01) ==
LOC: SDC-PAIN 11:14
PROVIDERS: ATTEND Psychiatry & Neurology Pain Medicine
DX: M79.18 Myalgia, other site (principal)